=== PATIENT | male | born 1960 | race Hispanic/Latino ===

== ENCOUNTER 2019-04-19 14:00 | Inpatient (IN) | payer MEDICARE ==
[~2019-04-19] VITALS: Ht 162.6 cm; Wt 79.0 kg
[2019-04-19 16:33] LABS: BASOPHILS % (AUTO) 0.4 % (0.0-5.0); EOSINOPHILS % (AUTO) 1.6 % (0.0-8.0); HEMATOCRIT 39.7 % (42-54); LYMPHOCYTES % (AUTO) 14.3 % (21.0-51.0); MEAN CORPUSCULAR HEMOGLOBIN 29.7 pg (27.0-33.0); MEAN CORPUSCULAR HGB CONC 32.5 g/dL (32.0-36.0); MEAN CORPUSCULAR VOLUME 91.3 fL (79-99); MONOCYTES % (AUTO) 6.5 % (3.0-13.0); NEUTROPHILS % (AUTO) 77.2 % (40.0-77.0); PLATELET COUNT (AUTO) 227 K/uL (130-400); RED BLOOD CELL COUNT(AUTO) 4.34 MIL/uL (4.50-6.20); RED CELL DISTRIBUTION WIDTH 15.9 % (11.0-15.5); WHITE BLOOD COUNT (AUTO) 6.7 K/uL (4.8-10.8)
[2019-04-19 16:46] LABS: POTASSIUM 4.6 mmol/L (3.5-5.1)
[2019-04-19 16:53] LABS: CREATININE 8.8 mg/dL (0.5-1.5)
[2019-04-19 17:11] LABS: INR 1.14 (0.85-1.15); PROTHROMBIN TIME 11.9 SEC (9.6-11.6)
[2019-04-19 17:14] VITALS: BP 145/74
[2019-04-19] MEDS ORDERED: BUDE10.2 IH (18:19)
[2019-04-19] MEDS ORDERED: LISI-613 PO (18:19)
[2019-04-19] MEDS ORDERED: HYDR28OI10 TP (18:19)
[2019-04-19] MEDS ORDERED: DOCU-282 PO (18:19)
[2019-04-19] MEDS ORDERED: CARV12.511 PO (18:19)
[2019-04-19] MEDS ORDERED: OMEP20TA25 PO (18:19)
[2019-04-19] MEDS ORDERED: ZOLP10TA2 PO (18:19)
[2019-04-19] MEDS ORDERED: ATOR40TA69 PO (18:19)
[2019-04-19] MEDS ORDERED: IPRAHFA IH (18:19)
[2019-04-19] MEDS ORDERED: NPH,100V11 SQ (18:19)
[2019-04-19] MEDS ORDERED: BENZ-39 PO (18:19)
[2019-04-19] MEDS ORDERED: CALC667T6 PO (18:19)
[2019-04-19] MEDS ORDERED: ASPI-555 PO (18:19)
[2019-04-19] MEDS ORDERED: HYDR-4154 PO (18:19)
[2019-04-19] MEDS ORDERED: FURO20TA4 PO (18:19)
--- NOTE | 2019-04-19 18:49 | NUR ---
NOTIFIED OF ELEVATED PT LEVEL, NO NEW ORDERS RECEIVED.
[2019-04-20] VITALS (22 sets, daily range): BP systolic 120–148; BP diastolic 57–90
[2019-04-20] MEDS ORDERED: SODIUM CHLORIDE 0.9% 1000ML 1,000 ML IV ONE (07:49)
[2019-04-20] MEDS ORDERED: LIDOCAINE HCL MPF 1% 5ML VIAL ONE ×2 (07:52→07:56)
[2019-04-20] MEDS ORDERED: FENTANYL CITRATE PF 50 MCG/1 ML 2ML VIAL ONE (07:53)
[2019-04-20] MEDS ORDERED: ROCURONIUM 10MG/1ML SYR 10 MG/ML ML ONE (07:53)
[2019-04-20] MEDS ORDERED: PROPOFOL 10 MG/ML 20ML VIAL IV ONE (07:53)
[2019-04-20] MEDS ORDERED: MIDAZOLAM HCL 1 MG/ML 2ML VIAL ONE (07:56)
[2019-04-20] MEDS ORDERED: ROPIVACAINE 0.5% 5MG/ML 30ML IJ ONE (07:58)
[2019-04-20] MEDS: CEFAZOLIN SODIUM 1 GM VIAL IVP ONE ×2 (08:01→08:40)
[2019-04-20] MEDS ORDERED: PROPOFOL 1000 MG/100 ML 100 ML IV ONE (08:43)
[2019-04-20] MEDS ORDERED: EPHEDRINE SULFATE 50 MG/ML AMPULE ONE (08:59)
[2019-04-20] MEDS ORDERED: CEFAZOLIN SODIUM 1 GM VIAL ONE (09:08)
[2019-04-20] MEDS ORDERED: GLYCOPYRROLATE 1 MG/5 ML SYRINGE ONE (10:25)
[2019-04-20] MEDS ORDERED: NEOSTIGMINE 5MG/5ML SYR IV ONE (10:25)
[2019-04-20] MEDS ORDERED: SODIUM CHLORIDE 0.9% 1000ML 1,000 ML IV SCH (10:31)
[2019-04-20] MEDS ORDERED: CALCIUM CARBONATE 500 MG TABLET PO PRN (10:45)
[2019-04-20] MEDS ORDERED: DiphenhydrAMINE HCL 50 MG/ML VIAL IVP PRN (10:45)
[2019-04-20] MEDS ORDERED: TEMAZEPAM 15 MG CAPSULE PO PRN (10:45)
[2019-04-20] MEDS ORDERED: DIPHENHYDRAMINE HCL 25 MG CAPSULE PO PRN (10:45)
[2019-04-20] MEDS ORDERED: PROMETHAZINE HCL 25 MG/ML 1ML AMPULE IM PRN (10:45)
[2019-04-20] MEDS ORDERED: FERROUS FUMARATE 324 MG TABLET PO PRN (10:45)
[2019-04-20] MEDS ORDERED: HYDROCODONE/ACETAMINOPHEN 5/325 MG TAB PO PRN (10:45)
--- NOTE | 2019-04-20 10:48 | NUR ---
DIALYSIS GRAFT TO LEFT ARM, LEFT ARM PROTECTED. Addendum: 04/20/19 at 1234 by XOCHITL HAMMER RN RN Amended: Links added.
[2019-04-20] MEDS: INSULIN HUMULIN R 100 UNIT/ML 3ML SQ SCH ×3 (11:30→21:00)
--- NOTE | 2019-04-20 11:48 | NUR ---
JEREMIAH RIVERA INFORMED TO MAKE DETENTION SERGEANT AWARE OF PT'S CURRENT RM NUMBER TO FOLLOW UP WITH CHECKING OF THE DIFIBRILLATOR. Addendum: 04/20/19 at 1235 by XOCHITL HAMMER RN RN Amended: Links added.
[2019-04-20] MEDS: PSYLLIUM SEED 1 EACH PACKET PO SCH (12:00)
[2019-04-20] MEDS ORDERED: DOCUSATE SODIUM 100 MG CAP PO PRN (13:00)
[2019-04-20] MEDS ORDERED: CEFAZOLIN SODIUM 1 GM VIAL IVP SCH (13:00)
[2019-04-20] MEDS ORDERED: ZOLPIDEM TARTRATE 5 MG TAB PO PRN (13:15)
[2019-04-20] MEDS: BENZONATATE 100 MG CAPSULE PO SCH ×2 (14:38→21:45)
[2019-04-20] MEDS: CALCIUM ACETATE 667 MG CAPSULE PO SCH (16:40)
[2019-04-20] MEDS ORDERED: IPRATROPIUM 0.5 MG/2.5 ML INH IH SCH (18:00)
[2019-04-20] MEDS ORDERED: ALBUTEROL SULFATE 0.083% 2.5 MG/3 ML INH IH SCH (18:00)
[2019-04-20] MEDS: IPRATROPIUM/ALBUTEROL SULFATE 3 ML SOLUTION IH SCH (19:25)
[2019-04-20] MEDS: BUDESONIDE 0.5 MG/2 ML INH IH SCH (19:38)
[2019-04-20] MEDS: INSULIN NPH 100 UNIT/ML 3ML SQ SCH (21:00)
[2019-04-20] MEDS: CARVEDILOL 12.5 MG TABLET PO SCH (21:45)
[2019-04-20] MEDS: ATORVASTATIN CALCIUM 40 MG TABLET PO SCH (21:45)
[2019-04-20] MEDS: HYDROCORTISONE 1% 28.35 GM CREAM TP SCH (21:46)
[2019-04-20] MEDS: HYDROCODONE/ACETAMINOPHEN 5/325 MG TAB PO PRN (21:46)
[2019-04-20] MEDS: CEFAZOLIN SODIUM 1 GM VIAL IVP SCH (21:51)
--- NOTE | 2019-04-20 23:23 | NUR ---
MAKI GUARDADO PATIENT REPORTS HAVING SEVERE PAIN TO SURGICAL SITE, STATES PAIN IS 9/10. PATIENT RECEIVED 2 TABS OF NORCO 5/[address] AT [address] ARTHUR WAS NOTIFIED AND ORDERED FOR PATIENT TO BE STARTED ON A BUTCHERETTE PUMP, MORPHINE PROTOCOL. Addendum: 04/21/19 at 0048 by STEFANO BARNHART RN RN [id number] DR. ARTHUR WAS NOTIFIED THAT MORPHINE BUTCHERETTE PUMP WAS NOT AVAILABLE. ORDERED FOR PATIENT TO BE STARTED ON HYDROMORPHONE BUTCHERETTE PUMP PER PROTOCOL.
[2019-04-21] VITALS: BP 109/71
[2019-04-21] MEDS ORDERED: HYDROMORPHONE PCA 10 MG/50 ML 50 ML IV PRN
[2019-04-21] MEDS: IPRATROPIUM/ALBUTEROL SULFATE 3 ML SOLUTION IH SCH ×5 (00:10→23:02)
[2019-04-21 04:00] VITALS: BP 114/70
[2019-04-21] MEDS: BUDESONIDE 0.5 MG/2 ML INH IH SCH ×2 (05:00→18:53)
[2019-04-21 05:09] LABS: HEMATOCRIT 35.2 % (42-54); MEAN CORPUSCULAR HGB CONC 33.1 g/dL (32.0-36.0); MEAN CORPUSCULAR VOLUME 90.6 fL (79-99); PLATELET COUNT (AUTO) 179 K/uL (130-400); RED BLOOD CELL COUNT(AUTO) 3.88 MIL/uL (4.50-6.20); RED CELL DISTRIBUTION WIDTH 16.2 % (11.0-15.5)
[2019-04-21 05:32] LABS: POTASSIUM 4.3 mmol/L (3.5-5.1)
[2019-04-21] MEDS: INSULIN HUMULIN R 100 UNIT/ML 3ML SQ SCH ×4 (07:30→21:00)
--- NOTE | 2019-04-21 07:30 | NUR ---
SHY SCREEN PRINTER AWARE THAT VICE PRESIDENT TAX PUMP HAS NOT BEEN WORKING PROPERLY ACCORDING TO THE VICE PRESIDENT TAX PUMP , PATIENT HAS NOT RECEIVED ANY MEDICATION WHAT SO EVER. PATIENT DENIES ANY PAIN AND STATES VICE PRESIDENT TAX PUMP HAS RELIEVED HIS PAIN'. DR Komal ARTHUR AWARE WELL
[2019-04-21 07:46] VITALS: BP 126/76
[2019-04-21] MEDS: CALCIUM ACETATE 667 MG CAPSULE PO SCH ×2 (08:00→12:00)
--- NOTE | 2019-04-21 08:30 | NUR ---
PER DR. ARTHUR LEAVE PRICING ACTUARY HOW IT IS, IF PATIENT STARTS COMPLAINING OF PAIN THEN REPLACE PRICING ACTUARY PUMP
[2019-04-21] MEDS: INSULIN NPH 100 UNIT/ML 3ML SQ SCH ×2 (09:00→21:00)
[2019-04-21] MEDS: LISINOPRIL 20 MG TABLET PO SCH ×2 (09:00→09:33)
[2019-04-21] MEDS: CARVEDILOL 12.5 MG TABLET PO SCH ×3 (09:00→22:28)
[2019-04-21] MEDS: PANTOPRAZOLE SODIUM 40 MG TABLET.DR PO SCH (09:32)
[2019-04-21] MEDS: BENZONATATE 100 MG CAPSULE PO SCH ×3 (09:32→22:28)
[2019-04-21] MEDS: ASPIRIN 81 MG EC TAB PO SCH (09:32)
[2019-04-21] MEDS: FAMOTIDINE 20MG TAB 20 MG TAB PO SCH (09:33)
[2019-04-21] MEDS: CEFAZOLIN SODIUM 1 GM VIAL IVP SCH (09:34)
[2019-04-21] MEDS: ENOXAPARIN SODIUM 40 MG/0.4 ML SYRINGE SQ SCH (09:36)
[2019-04-21] MEDS: POLYETHYLENE GLYCOL 3350 17 GM POWD.PACK PO SCH (09:38)
--- NOTE | 2019-04-21 11:00 | NUR ---
INITIAL AND REFERRAL MET W PT AT BEDSIDE- S/P JOHNNY; PT LIVES IN [facility] AND GOES TO HD MWF AT [facility] IN [place]- LIVES W A FRIEND, USES MEDICAL TRANSPORT SERVICE FOR HD TRANSPORT AND HAS ANOTHER FRIEND THAN CAN HELP AT OTHER TIMES. WANTED TO HAVE HH AT HOME- EXPLAINED THE RISK/BENEFIST OF SNF VS HOME VS IPRU AND PT DECIDED ON IRU. ARGELIA SHEETS AND JULIA CONTACTED. PT IS CONDITIONALLY ACEPTED EVEN BEFORE EVAL PT WILL GO BY EMS TRANSPORT. MOT PENDING COMPLETION Addendum: 04/21/19 at 2148 by TITI GOMEZ RN CM Amended: Links added.
[2019-04-21 11:37] VITALS: BP 144/74
[2019-04-21] MEDS: PSYLLIUM SEED 1 EACH PACKET PO SCH (12:00)
--- NOTE | 2019-04-21 12:30 | NUR ---
PATIENT STATES HE DOES NOT WANT MEDICATIONS AT THIS TIME SINCE HE STILL NAUSEOUS NO CHEST PAIN, NO SOB WILL CONTINUE TO MONITOR
[2019-04-21 16:31] VITALS: BP 112/76
[2019-04-21 20:00] VITALS: BP 120/81
[2019-04-21] MEDS: HYDROCORTISONE 1% 28.35 GM CREAM TP SCH (22:27)
[2019-04-21] MEDS: ATORVASTATIN CALCIUM 40 MG TABLET PO SCH (22:28)
[2019-04-22] VITALS (7 sets, daily range): BP systolic 100–138; BP diastolic 58–84
[2019-04-22] MEDS: HYDROCODONE/ACETAMINOPHEN 5/325 MG TAB PO PRN (00:18)
[2019-04-22 04:38] LABS: HEMATOCRIT 34.6 % (42-54); MEAN CORPUSCULAR HGB CONC 33.1 g/dL (32.0-36.0); MEAN CORPUSCULAR VOLUME 90.5 fL (79-99); NUCLEATED RED BLOOD CELLS 0.1 % (0.0-0.19); PLATELET COUNT (AUTO) 178 K/uL (130-400); RED BLOOD CELL COUNT(AUTO) 3.83 MIL/uL (4.50-6.20)
[2019-04-22 05:05] LABS: PHOSPHORUS 6.9 mg/dL (2.5-4.9); POTASSIUM 4.8 mmol/L (3.5-5.1)
[2019-04-22] MEDS: IPRATROPIUM/ALBUTEROL SULFATE 3 ML SOLUTION IH SCH ×4 (06:04→23:01)
[2019-04-22] MEDS: BUDESONIDE 0.5 MG/2 ML INH IH SCH ×2 (06:11→18:46)
[2019-04-22] MEDS: INSULIN HUMULIN R 100 UNIT/ML 3ML SQ SCH ×4 (06:43→20:19)
[2019-04-22 08:12] LABS: HEPATITIS Bs ANTIGEN SCREEN P Negative (Negative)
[2019-04-22] MEDS: INSULIN NPH 100 UNIT/ML 3ML SQ SCH ×2 (09:00→20:22)
[2019-04-22] MEDS: CARVEDILOL 12.5 MG TABLET PO SCH ×2 (09:00→20:19)
[2019-04-22] MEDS: HYDROCORTISONE 1% 28.35 GM CREAM TP SCH ×2 (09:00→20:22)
[2019-04-22] MEDS: LISINOPRIL 20 MG TABLET PO SCH (09:00)
--- NOTE | 2019-04-22 09:00 | NUR ---
ROUNDS/DR.COBOS BARLOW HERE TO SEE PT, REMOVED DRESSING, INCISION CLEAN AND DRY, LA NENA INTACT, NO REDNESS OR DRAINAGE NOTED, CLEANSED WITH BETADINE AND COVERED WITH XEROFORM DRESSING, GAUZE PADS, KURLIX AND GARY BANDAGES, TOLERATED PROCEDURE WELL.
--- NOTE | 2019-04-22 10:00 | NUR ---
CM note received call from Grecia at [facility], and she states that pt is accepted, but not able accept until tomorow. updated primary Nurse Dior.
[2019-04-22] MEDS: ENOXAPARIN SODIUM 40 MG/0.4 ML SYRINGE SQ SCH (10:23)
[2019-04-22] MEDS: ASPIRIN 81 MG EC TAB PO SCH (10:23)
[2019-04-22] MEDS: CALCIUM ACETATE 667 MG CAPSULE PO SCH ×3 (10:24→16:49)
[2019-04-22] MEDS: PANTOPRAZOLE SODIUM 40 MG TABLET.DR PO SCH (10:24)
[2019-04-22] MEDS: FAMOTIDINE 20MG TAB 20 MG TAB PO SCH (10:24)
[2019-04-22] MEDS: POLYETHYLENE GLYCOL 3350 17 GM POWD.PACK PO SCH (10:24)
[2019-04-22] MEDS: BENZONATATE 100 MG CAPSULE PO SCH ×3 (10:24→20:19)
--- NOTE | 2019-04-22 10:30 | NUR ---
MEDICATION NONADMINISTRATION DID NOT ADMINISTER SCHEDULED BLOOD PRESSURE MEDICATIONS (LISINOPRIL, COREG) PATIENT IS PENDING TO RECEIVE HEMODIALYSIS TREATMENT TODAY. PATIENT IS AWARE AND IN AGREEMENT OF HOLDING BLOOD PRESSURE MEDICATIONS.
[2019-04-22] MEDS ORDERED: BISACODYL 5 MG TABLET.DR PO PRN (10:45)
[2019-04-22] MEDS: PSYLLIUM SEED 1 EACH PACKET PO SCH (12:44)
[2019-04-22] MEDS: ATORVASTATIN CALCIUM 40 MG TABLET PO SCH (20:19)
[2019-04-23 03:26] VITALS: BP 130/75
[2019-04-23 05:06] LABS: HEMATOCRIT 36.1 % (42-54); MEAN CORPUSCULAR HEMOGLOBIN 30.3 pg (27.0-33.0); MEAN CORPUSCULAR HGB CONC 33.2 g/dL (32.0-36.0); MEAN CORPUSCULAR VOLUME 91.3 fL (79-99); NUCLEATED RED BLOOD CELLS 0.1 % (0.0-0.19); PLATELET COUNT (AUTO) 159 K/uL (130-400); RED BLOOD CELL COUNT(AUTO) 3.95 MIL/uL (4.50-6.20); WHITE BLOOD COUNT (AUTO) 6.2 K/uL (4.8-10.8)
[2019-04-23 05:15] LABS: CREATININE 5.8 mg/dL (0.5-1.5); POTASSIUM 4.2 mmol/L (3.5-5.1)
[2019-04-23] MEDS: INSULIN HUMULIN R 100 UNIT/ML 3ML SQ SCH ×2 (06:16→11:30)
[2019-04-23] MEDS: BUDESONIDE 0.5 MG/2 ML INH IH SCH (06:36)
[2019-04-23] MEDS: IPRATROPIUM/ALBUTEROL SULFATE 3 ML SOLUTION IH SCH ×2 (06:36→11:18)
[2019-04-23 07:53] VITALS: BP 127/68
[2019-04-23] MEDS: INSULIN NPH 100 UNIT/ML 3ML SQ SCH (09:00)
[2019-04-23] MEDS: HYDROCORTISONE 1% 28.35 GM CREAM TP SCH (09:00)
[2019-04-23] MEDS ORDERED: BISACODYL 10 MG SUPP.RECT RC PRN (10:45)
[2019-04-23] MEDS: POLYETHYLENE GLYCOL 3350 17 GM POWD.PACK PO SCH (11:05)
[2019-04-23] MEDS: FAMOTIDINE 20MG TAB 20 MG TAB PO SCH (11:05)
[2019-04-23] MEDS: LISINOPRIL 20 MG TABLET PO SCH (11:06)
[2019-04-23] MEDS: CARVEDILOL 12.5 MG TABLET PO SCH (11:06)
[2019-04-23] MEDS: ASPIRIN 81 MG EC TAB PO SCH (11:06)
[2019-04-23] MEDS: PANTOPRAZOLE SODIUM 40 MG TABLET.DR PO SCH (11:06)
[2019-04-23] MEDS: CALCIUM ACETATE 667 MG CAPSULE PO SCH ×2 (11:07→12:00)
[2019-04-23] MEDS: BENZONATATE 100 MG CAPSULE PO SCH (11:10)
[2019-04-23] MEDS: ENOXAPARIN SODIUM 40 MG/0.4 ML SYRINGE SQ SCH (11:10)
[2019-04-23] MEDS: HYDROCODONE/ACETAMINOPHEN 5/325 MG TAB PO PRN (11:11)
[2019-04-23 11:39] VITALS: BP 121/79
[2019-04-23] MEDS: PSYLLIUM SEED 1 EACH PACKET PO SCH (12:00)
--- NOTE | 2019-04-23 12:05 | NUR ---
REPORT GIVEN [facility] AWARE NURSE REPORT GIVEN TO PATRICK OF [facility] [phone]. CALLED [facility] [phone], SPOKE TO RODNEY AND INFORMED HER THAT PATIENT IS READY TO BE PICKED UP TO BE TRANSFERRED TO [facility].
== END 2019-04-23 13:58 | DRG 40 ==
LOC: EDSTATUS 14:00 → DAHIP 04-20 06:59 → OBSVTOIN 04-20 06:59 → 4AH 04-20 11:10
PROVIDERS: ADMIT Orthopaedic Surgery; ATTEND Orthopaedic Surgery
PROC: 5A1D70Z Performance of Urinary Filtration, Intermittent, Less than 6 Hours Per Day (ICD-10-PCS; 2019-04-20)
PROC: 0Y6H0Z1 Detachment at Right Lower Leg, High, Open Approach (ICD-10-PCS; principal; 2019-04-20 08:25)
PROC: 5A1D70Z Performance of Urinary Filtration, Intermittent, Less than 6 Hours Per Day (ICD-10-PCS; 2019-04-22)
DX: E11.610 Type 2 diabetes mellitus with diabetic neuropathic arthropathy (principal); N18.6 End stage renal disease; I12.0 Hypertensive chronic kidney disease with stage 5 chronic kidney disease or end stage renal disease; E11.22 Type 2 diabetes mellitus with diabetic chronic kidney disease; E11.51 Type 2 diabetes mellitus with diabetic peripheral angiopathy without gangrene; G89.29 Other chronic pain; R26.9 Unspecified abnormalities of gait and mobility; I25.10 Atherosclerotic heart disease of native coronary artery without angina pectoris; J44.9 Chronic obstructive pulmonary disease, unspecified; Z99.2 Dependence on renal dialysis; Z95.1 Presence of aortocoronary bypass graft; Z86.73 Personal history of transient ischemic attack (TIA), and cerebral infarction without residual deficits; Z82.0 Family history of epilepsy and other diseases of the nervous system; Z80.9 Family history of malignant neoplasm, unspecified; Z82.49 Family history of ischemic heart disease and other diseases of the circulatory system
CPT/HCPCS: 36415; 80048; 82948; 84100; 85025; 85027; 85610; 86704; 86706; 87340; 87520; 87641; 88304; 88307; 88311; 90935; 93005; 94640; 94664; 97039; G0378; J0690; J1170; J1650; J1815; J2250; J2550; J2704; J2710; J2795; J3010; J3490; J7030

== ENCOUNTER → 2019-06-14 | Outpatient (CLI) | payer MEDICARE ==
[~2019-06-14] MED LIST: ASPI-555 PO; ATOR40TA69 PO; BENZ-39 PO; BUDE10.2 IH; CALC667T6 PO; CARV12.511 PO; DOCU-282 PO; HYDR28OI10 TP; IPRAHFA IH; LIDOCAINE HCL 2% JELLY 5 ML TP ONE; LISI-613 PO; NPH,100V11 SQ; OMEP20TA25 PO; ZOLP10TA2 PO
[2019-06-14 15:35] VITALS: BP 167/79
== END | disposition home or self-care (01) ==
LOC: WHH 13:00
PROVIDERS: ATTEND Family Medicine
DX: T87.81 Dehiscence of amputation stump (principal); E11.51 Type 2 diabetes mellitus with diabetic peripheral angiopathy without gangrene; E11.22 Type 2 diabetes mellitus with diabetic chronic kidney disease; I12.0 Hypertensive chronic kidney disease with stage 5 chronic kidney disease or end stage renal disease; N18.6 End stage renal disease; E11.610 Type 2 diabetes mellitus with diabetic neuropathic arthropathy; I25.10 Atherosclerotic heart disease of native coronary artery without angina pectoris; I25.2 Old myocardial infarction; J44.9 Chronic obstructive pulmonary disease, unspecified; G89.29 Other chronic pain; Z99.2 Dependence on renal dialysis; Z79.4 Long term (current) use of insulin; Z79.82 Long term (current) use of aspirin; Z95.5 Presence of coronary angioplasty implant and graft; Z89.422 Acquired absence of other left toe(s); Z86.718 Personal history of other venous thrombosis and embolism; Y83.5 Amputation of limb(s) as the cause of abnormal reaction of the patient, or of later complication, without mention of misadventure at the time of the procedure
CPT/HCPCS: 11042; 36415; 84134; 85651; 86140; 87070; A6213

== ENCOUNTER → 2019-06-21 | Outpatient (CLI) | payer MEDICARE ==
[~2019-06-21] MED LIST changes: -LIDOCAINE HCL 2% JELLY 5 ML TP ONE
[2019-06-21 14:36] VITALS: BP 153/94
== END | disposition home or self-care (01) ==
LOC: WHH 13:15
PROVIDERS: ATTEND Family Medicine
DX: T87.81 Dehiscence of amputation stump (principal); E11.51 Type 2 diabetes mellitus with diabetic peripheral angiopathy without gangrene; E11.22 Type 2 diabetes mellitus with diabetic chronic kidney disease; I12.0 Hypertensive chronic kidney disease with stage 5 chronic kidney disease or end stage renal disease; N18.6 End stage renal disease; E11.610 Type 2 diabetes mellitus with diabetic neuropathic arthropathy; I25.10 Atherosclerotic heart disease of native coronary artery without angina pectoris; I25.2 Old myocardial infarction; J44.9 Chronic obstructive pulmonary disease, unspecified; G89.29 Other chronic pain; Z99.2 Dependence on renal dialysis; Z79.4 Long term (current) use of insulin; Z79.82 Long term (current) use of aspirin; Z95.5 Presence of coronary angioplasty implant and graft; Z89.422 Acquired absence of other left toe(s); Z86.718 Personal history of other venous thrombosis and embolism; Z95.810 Presence of automatic (implantable) cardiac defibrillator; Y83.5 Amputation of limb(s) as the cause of abnormal reaction of the patient, or of later complication, without mention of misadventure at the time of the procedure
CPT/HCPCS: 11042

== ENCOUNTER → 2019-07-08 | Outpatient (CLI) | payer MEDICARE ==
[~2019-07-08] MED LIST changes: +HONEY 1 APPL/ML TUBE TP ONE; +LIDOCAINE/PRILOCAINE CREAM 5GM TUBE TP ONE
[2019-07-08 15:11] VITALS: BP 142/75
== END | disposition home or self-care (01) ==
LOC: WHH 13:45
PROVIDERS: ATTEND Family Medicine
DX: T87.81 Dehiscence of amputation stump (principal); E11.51 Type 2 diabetes mellitus with diabetic peripheral angiopathy without gangrene; E11.22 Type 2 diabetes mellitus with diabetic chronic kidney disease; I12.0 Hypertensive chronic kidney disease with stage 5 chronic kidney disease or end stage renal disease; N18.6 End stage renal disease; E11.610 Type 2 diabetes mellitus with diabetic neuropathic arthropathy; I25.10 Atherosclerotic heart disease of native coronary artery without angina pectoris; I25.2 Old myocardial infarction; J44.9 Chronic obstructive pulmonary disease, unspecified; G89.29 Other chronic pain; Z99.2 Dependence on renal dialysis; Z79.4 Long term (current) use of insulin; Z79.82 Long term (current) use of aspirin; Z95.5 Presence of coronary angioplasty implant and graft; Z89.422 Acquired absence of other left toe(s); Z86.718 Personal history of other venous thrombosis and embolism; Z95.810 Presence of automatic (implantable) cardiac defibrillator; Y83.5 Amputation of limb(s) as the cause of abnormal reaction of the patient, or of later complication, without mention of misadventure at the time of the procedure
CPT/HCPCS: 11042; A4450; J3490

== ENCOUNTER → 2019-07-12 | Outpatient (CLI) | payer MEDICARE ==
[~2019-07-12] MED LIST changes: -HONEY 1 APPL/ML TUBE TP ONE; -LIDOCAINE/PRILOCAINE CREAM 5GM TUBE TP ONE
[2019-07-12 15:39] VITALS: BP 166/89
== END | disposition home or self-care (01) ==
LOC: WHH 13:30
PROVIDERS: ATTEND Family Medicine
DX: T87.89 Other complications of amputation stump (principal); E11.51 Type 2 diabetes mellitus with diabetic peripheral angiopathy without gangrene; E11.22 Type 2 diabetes mellitus with diabetic chronic kidney disease; I12.0 Hypertensive chronic kidney disease with stage 5 chronic kidney disease or end stage renal disease; N18.6 End stage renal disease; E11.610 Type 2 diabetes mellitus with diabetic neuropathic arthropathy; I25.10 Atherosclerotic heart disease of native coronary artery without angina pectoris; I25.2 Old myocardial infarction; J44.9 Chronic obstructive pulmonary disease, unspecified; G89.29 Other chronic pain; Z99.2 Dependence on renal dialysis; Z79.4 Long term (current) use of insulin; Z79.82 Long term (current) use of aspirin; Z95.5 Presence of coronary angioplasty implant and graft; Z89.422 Acquired absence of other left toe(s); Z86.718 Personal history of other venous thrombosis and embolism; Z95.810 Presence of automatic (implantable) cardiac defibrillator; Y83.5 Amputation of limb(s) as the cause of abnormal reaction of the patient, or of later complication, without mention of misadventure at the time of the procedure
CPT/HCPCS: 11042

== ENCOUNTER → 2019-07-19 | Outpatient (CLI) | payer MEDICARE ==
[~2019-07-19] MED LIST changes: +LIDOCAINE/PRILOCAINE CREAM 5GM TUBE TP ONE
[2019-07-19 15:08] VITALS: BP 160/93
== END | disposition home or self-care (01) ==
LOC: WHH 13:00
PROVIDERS: ATTEND Family Medicine
DX: T87.81 Dehiscence of amputation stump (principal); E11.621 Type 2 diabetes mellitus with foot ulcer; L97.522 Non-pressure chronic ulcer of other part of left foot with fat layer exposed; E11.51 Type 2 diabetes mellitus with diabetic peripheral angiopathy without gangrene; E11.40 Type 2 diabetes mellitus with diabetic neuropathy, unspecified; E11.22 Type 2 diabetes mellitus with diabetic chronic kidney disease; I12.0 Hypertensive chronic kidney disease with stage 5 chronic kidney disease or end stage renal disease; N18.6 End stage renal disease; E11.610 Type 2 diabetes mellitus with diabetic neuropathic arthropathy; I25.10 Atherosclerotic heart disease of native coronary artery without angina pectoris; I25.2 Old myocardial infarction; J44.9 Chronic obstructive pulmonary disease, unspecified; G89.29 Other chronic pain; Z99.2 Dependence on renal dialysis; Z79.4 Long term (current) use of insulin; Z79.82 Long term (current) use of aspirin; Z95.5 Presence of coronary angioplasty implant and graft; Z89.422 Acquired absence of other left toe(s); Z86.718 Personal history of other venous thrombosis and embolism; Z95.810 Presence of automatic (implantable) cardiac defibrillator; Y83.5 Amputation of limb(s) as the cause of abnormal reaction of the patient, or of later complication, without mention of misadventure at the time of the procedure
CPT/HCPCS: 11042; A6209; J3490

== ENCOUNTER → 2019-08-02 | Outpatient (CLI) | payer MEDICARE ==
[~2019-08-02] MED LIST changes: -LIDOCAINE/PRILOCAINE CREAM 5GM TUBE TP ONE
[2019-08-02 15:54] VITALS: BP 140/70
== END | disposition home or self-care (01) ==
LOC: WHH 13:00
PROVIDERS: ATTEND Family Medicine
DX: T87.89 Other complications of amputation stump (principal); E11.22 Type 2 diabetes mellitus with diabetic chronic kidney disease; I12.0 Hypertensive chronic kidney disease with stage 5 chronic kidney disease or end stage renal disease; N18.6 End stage renal disease; E11.40 Type 2 diabetes mellitus with diabetic neuropathy, unspecified; E11.610 Type 2 diabetes mellitus with diabetic neuropathic arthropathy; E11.51 Type 2 diabetes mellitus with diabetic peripheral angiopathy without gangrene; I25.10 Atherosclerotic heart disease of native coronary artery without angina pectoris; K21.9 Gastro-esophageal reflux disease without esophagitis; I25.2 Old myocardial infarction; G89.29 Other chronic pain; J44.9 Chronic obstructive pulmonary disease, unspecified; Z99.2 Dependence on renal dialysis; Z79.4 Long term (current) use of insulin; Z79.82 Long term (current) use of aspirin; Z86.718 Personal history of other venous thrombosis and embolism; Z95.810 Presence of automatic (implantable) cardiac defibrillator; Z95.1 Presence of aortocoronary bypass graft; Z89.422 Acquired absence of other left toe(s); Y83.5 Amputation of limb(s) as the cause of abnormal reaction of the patient, or of later complication, without mention of misadventure at the time of the procedure
CPT/HCPCS: 11042; A6209

== ENCOUNTER → 2019-08-09 | Outpatient (CLI) | payer MEDICARE ==
[2019-08-09 15:08] VITALS: BP 128/56
== END | disposition home or self-care (01) ==
LOC: WHH 13:30
PROVIDERS: ATTEND Family Medicine
DX: T87.89 Other complications of amputation stump (principal); E11.22 Type 2 diabetes mellitus with diabetic chronic kidney disease; I12.0 Hypertensive chronic kidney disease with stage 5 chronic kidney disease or end stage renal disease; N18.6 End stage renal disease; E11.610 Type 2 diabetes mellitus with diabetic neuropathic arthropathy; E11.40 Type 2 diabetes mellitus with diabetic neuropathy, unspecified; E11.51 Type 2 diabetes mellitus with diabetic peripheral angiopathy without gangrene; I25.10 Atherosclerotic heart disease of native coronary artery without angina pectoris; I25.2 Old myocardial infarction; J44.9 Chronic obstructive pulmonary disease, unspecified; K21.9 Gastro-esophageal reflux disease without esophagitis; G89.29 Other chronic pain; Z99.2 Dependence on renal dialysis; Z79.4 Long term (current) use of insulin; Z79.82 Long term (current) use of aspirin; Z95.1 Presence of aortocoronary bypass graft; Z95.810 Presence of automatic (implantable) cardiac defibrillator; Z89.422 Acquired absence of other left toe(s); Z86.73 Personal history of transient ischemic attack (TIA), and cerebral infarction without residual deficits; Y83.5 Amputation of limb(s) as the cause of abnormal reaction of the patient, or of later complication, without mention of misadventure at the time of the procedure
CPT/HCPCS: 11042; A6213

== ENCOUNTER → 2019-08-16 | Outpatient (CLI) | payer MEDICARE ==
[2019-08-16 15:28] VITALS: BP 161/94
== END | disposition home or self-care (01) ==
LOC: WHH 13:30
PROVIDERS: ATTEND Family Medicine
DX: T87.89 Other complications of amputation stump (principal); E11.22 Type 2 diabetes mellitus with diabetic chronic kidney disease; I12.0 Hypertensive chronic kidney disease with stage 5 chronic kidney disease or end stage renal disease; N18.6 End stage renal disease; E11.610 Type 2 diabetes mellitus with diabetic neuropathic arthropathy; E11.40 Type 2 diabetes mellitus with diabetic neuropathy, unspecified; E11.51 Type 2 diabetes mellitus with diabetic peripheral angiopathy without gangrene; I25.10 Atherosclerotic heart disease of native coronary artery without angina pectoris; I25.2 Old myocardial infarction; K21.9 Gastro-esophageal reflux disease without esophagitis; G89.4 Chronic pain syndrome; J44.9 Chronic obstructive pulmonary disease, unspecified; Z99.2 Dependence on renal dialysis; Z79.4 Long term (current) use of insulin; Z98.2 Presence of cerebrospinal fluid drainage device; Z95.1 Presence of aortocoronary bypass graft; Z95.810 Presence of automatic (implantable) cardiac defibrillator; Z86.73 Personal history of transient ischemic attack (TIA), and cerebral infarction without residual deficits; Z86.718 Personal history of other venous thrombosis and embolism; Z89.422 Acquired absence of other left toe(s); Y83.5 Amputation of limb(s) as the cause of abnormal reaction of the patient, or of later complication, without mention of misadventure at the time of the procedure
CPT/HCPCS: A6210; G0463

== ENCOUNTER 2019-08-23 13:00 | Outpatient (CLI) | payer MEDICARE ==
[2019-08-23 15:36] VITALS: BP 148/69
== END 2019-08-23 16:20 | disposition home or self-care (01) ==
LOC: WHH 13:00
PROVIDERS: ATTEND Family Medicine
DX: T87.89 Other complications of amputation stump (principal); E11.22 Type 2 diabetes mellitus with diabetic chronic kidney disease; I12.0 Hypertensive chronic kidney disease with stage 5 chronic kidney disease or end stage renal disease; N18.6 End stage renal disease; E11.610 Type 2 diabetes mellitus with diabetic neuropathic arthropathy; E11.40 Type 2 diabetes mellitus with diabetic neuropathy, unspecified; E11.51 Type 2 diabetes mellitus with diabetic peripheral angiopathy without gangrene; I25.10 Atherosclerotic heart disease of native coronary artery without angina pectoris; I25.2 Old myocardial infarction; J44.9 Chronic obstructive pulmonary disease, unspecified; G89.4 Chronic pain syndrome; K21.9 Gastro-esophageal reflux disease without esophagitis; Z95.1 Presence of aortocoronary bypass graft; Z95.810 Presence of automatic (implantable) cardiac defibrillator; Z98.2 Presence of cerebrospinal fluid drainage device; Z99.2 Dependence on renal dialysis; Z79.4 Long term (current) use of insulin; Z79.82 Long term (current) use of aspirin; Z89.422 Acquired absence of other left toe(s); Z86.718 Personal history of other venous thrombosis and embolism; Z86.73 Personal history of transient ischemic attack (TIA), and cerebral infarction without residual deficits; Z95.5 Presence of coronary angioplasty implant and graft; Y83.5 Amputation of limb(s) as the cause of abnormal reaction of the patient, or of later complication, without mention of misadventure at the time of the procedure
CPT/HCPCS: G0463

== ENCOUNTER → 2019-11-04 | Outpatient (CLI) | payer MEDICARE ==
[~2019-11-04] MED LIST changes: +HYDR25SU11 PR; +LID5O TP; +MESA1S PR; +ZINC56.7 TP
[2019-11-04 12:56] VITALS: BP 136/82
== END | disposition home or self-care (01) ==
LOC: WHH 10:50
PROVIDERS: ATTEND Family Medicine
DX: E11.621 Type 2 diabetes mellitus with foot ulcer (principal); I70.245 Atherosclerosis of native arteries of left leg with ulceration of other part of foot; L97.521 Non-pressure chronic ulcer of other part of left foot limited to breakdown of skin; E11.622 Type 2 diabetes mellitus with other skin ulcer; I70.241 Atherosclerosis of native arteries of left leg with ulceration of thigh; L97.221 Non-pressure chronic ulcer of left calf limited to breakdown of skin; L98.491 Non-pressure chronic ulcer of skin of other sites limited to breakdown of skin; E11.22 Type 2 diabetes mellitus with diabetic chronic kidney disease; I12.0 Hypertensive chronic kidney disease with stage 5 chronic kidney disease or end stage renal disease; N18.6 End stage renal disease; E11.51 Type 2 diabetes mellitus with diabetic peripheral angiopathy without gangrene; I25.10 Atherosclerotic heart disease of native coronary artery without angina pectoris; E78.5 Hyperlipidemia, unspecified; E66.01 Morbid (severe) obesity due to excess calories; E78.00 Pure hypercholesterolemia, unspecified; K62.89 Other specified diseases of anus and rectum; K82.8 Other specified diseases of gallbladder; Z95.1 Presence of aortocoronary bypass graft; Z89.511 Acquired absence of right leg below knee; Z89.611 Acquired absence of right leg above knee; Z99.2 Dependence on renal dialysis
CPT/HCPCS: G0463

== ENCOUNTER 2019-11-17 22:01 | Inpatient (IN) | payer MEDICARE ==
[~2019-11-17] VITALS: Ht 165.1 cm; Wt 65.4 kg
[~2019-11-17 22:01] MED LIST changes: -ASPI-555 PO; +ASPI-556 PO
[2019-11-17 22:41] LABS: BASOPHILS % (AUTO) 0.2 % (0.0-5.0); EOSINOPHILS % (AUTO) 0.2 % (0.0-8.0); HEMATOCRIT 38.4 % (42-54); LYMPHOCYTES % (AUTO) 5.1 % (21.0-51.0); MEAN CORPUSCULAR HEMOGLOBIN 29.6 pg (27.0-33.0); MEAN CORPUSCULAR HGB CONC 31.8 g/dL (32.0-36.0); MEAN CORPUSCULAR VOLUME 93.2 fL (79-99); MONOCYTES % (AUTO) 2.6 % (3.0-13.0); NEUTROPHILS % (AUTO) 91.4 % (40.0-77.0); NUCLEATED RED BLOOD CELLS 0.1 % (0.0-0.19); PLATELET COUNT (AUTO) 215 K/uL (130-400); RED BLOOD CELL COUNT(AUTO) 4.12 MIL/uL (4.50-6.20); RED CELL DISTRIBUTION WIDTH 17.2 % (11.0-15.5); WHITE BLOOD COUNT (AUTO) 13.9 K/uL (4.8-10.8)
[2019-11-17 22:58] LABS: ALBUMIN 2.2 g/dL (3.5-5.0); BILIRUBIN,TOTAL 1.9 mg/dL (0.2-1.0); POTASSIUM 3.8 mmol/L (3.5-5.1)
[2019-11-17 23:09] LABS: CREATININE 10.7 mg/dL (0.5-1.5)
[2019-11-17] MEDS ORDERED: ONDANSETRON HCL 4 MG/2 ML VIAL ONE (23:33)
[2019-11-17] MEDS ORDERED: MORPHINE SULFATE 4 MG/1ML SYG ONE (23:34)
[2019-11-18 03:18] LABS: INR 1.55 (0.85-1.15); PROTHROMBIN TIME 16.5 SEC (9.6-11.6)
[2019-11-18] MEDS ORDERED: HEPARIN 25000 UNITS/250 ML D5W 250 ML IV ONE (03:27)
[2019-11-18] MEDS ORDERED: DEXTROSE 50%-WATER 50 ML DISP.SYRIN IV ONE (07:49)
[2019-11-18] MEDS ORDERED: EPINEPHRINE 0.1 MG/ML 10 ML SYG IVP ONE (08:26)
[2019-11-18] MEDS ORDERED: SODIUM BICARB 8.4% 50ML SYRINGE IVP ONE (08:26)
[2019-11-18] MEDS ORDERED: LIDOCAINE HCL 5% OINT 36GM TUBE TP PRN (09:15)
--- NOTE | 2019-11-18 09:50 | NUR ---
PT LETHARGIC UNABLE TO GET HX Addendum: 11/18/19 at 1009 by REZA LAL RT Amended: Links added.
[2019-11-18 10:05] LABS: PROTHROMBIN TIME 47.3 SEC (9.6-11.6)
[2019-11-18 10:09] LABS: INR 4.65 (0.85-1.15)
[2019-11-18 10:10] LABS: PARTIAL THROMBOPLASTIN TIME > 120.0 SEC (26.3-35.5)
[2019-11-18] MEDS ORDERED: NITROGLYCERIN 0.4 MG SL TAB SL PRN (12:45)
[2019-11-18] MEDS ORDERED: 0.9% SODIUM CHLORIDE 1000 ML IV BAG IV PRN (12:45)
[2019-11-18] MEDS ORDERED: SODIUM CHLORIDE 0.9% 1000ML 1,000 ML IV PRN (12:45)
--- NOTE | 2019-11-18 13:25 | NUR ---
HOLD EVALUATION Pt ON DIALYSIS AT THIS TIME. PROCEDURE WILL TAKE ABOUT 2HOURS. HOLD EVALUATION. POLE PEELING MACHINE OPERATOR WILL CONTINUE TO FOLLOW Pt FOR SKILLED SPEECH THERAPY MONICA. POLE PEELING MACHINE OPERATOR COORDINATED WITH NURSE STAFFORD. Addendum: 11/18/[address]ANNA MAYFIELD Amended: Links added.
[2019-11-18 13:35] LABS: INR 1.42 (0.85-1.15); PARTIAL THROMBOPLASTIN TIME 39.9 SEC (26.3-35.5); PROTHROMBIN TIME 15.1 SEC (9.6-11.6)
[2019-11-18] MEDS: IPRATROPIUM 0.5 MG/2.5 ML INH IH SCH ×2 (13:48→19:09)
[2019-11-18 16:45] VITALS: BP 113/61
[2019-11-18] MEDS: CALCIUM ACETATE 667 MG CAPSULE PO SCH ×2 (17:28→21:21)
[2019-11-18] MEDS: BENZONATATE 100 MG CAPSULE PO SCH ×2 (17:29→21:21)
[2019-11-18] MEDS: WARFARIN SODIUM 5 MG TAB PO SCH (17:29)
[2019-11-18] MEDS: CARVEDILOL 12.5 MG TABLET PO SCH (20:23)
[2019-11-18] MEDS: HYDROCORTISONE 25 MG SUPPOSITORY PR SCH (20:24)
[2019-11-18 20:25] LABS: INR 1.48 (0.85-1.15); PARTIAL THROMBOPLASTIN TIME 60.5 SEC (26.3-35.5); PROTHROMBIN TIME 15.7 SEC (9.6-11.6)
[2019-11-18 20:54] VITALS: BP 115/61
[2019-11-18] MEDS: ZINC OXIDE OINT 60GM TUBE TP SCH (21:00)
[2019-11-18] MEDS: HYDROCORTISONE 1% 28.35 GM CREAM TP SCH (21:00)
[2019-11-18] MEDS: MESALAMINE 1000 MG SUPP PR SCH (21:00)
[2019-11-18] MEDS: ATORVASTATIN CALCIUM 40 MG TABLET PO SCH (21:21)
[2019-11-18] MEDS ORDERED: HEPARIN 25000 UNITS/250 ML D5W 250 ML IV PRN (22:00)
[2019-11-19] VITALS (7 sets, daily range): BP systolic 95–133; BP diastolic 53–64
[2019-11-19 02:13] LABS: HEMATOCRIT 38.4 % (42-54); MEAN CORPUSCULAR HEMOGLOBIN 29.8 pg (27.0-33.0); MEAN CORPUSCULAR HGB CONC 31.8 g/dL (32.0-36.0); MEAN CORPUSCULAR VOLUME 93.7 fL (79-99); NUCLEATED RED BLOOD CELLS 0.2 % (0.0-0.19); PLATELET COUNT (AUTO) 160 K/uL (130-400); RED CELL DISTRIBUTION WIDTH 17.3 % (11.0-15.5); WHITE BLOOD COUNT (AUTO) 17.4 K/uL (4.8-10.8)
[2019-11-19 02:26] LABS: INR 1.49 (0.85-1.15); PARTIAL THROMBOPLASTIN TIME 43.9 SEC (26.3-35.5); PROTHROMBIN TIME 15.8 SEC (9.6-11.6)
[2019-11-19 02:27] LABS: BAND NEUTROPHILS % (MANUAL) 17 % (0-2); LYMPHOCYTES % (MANUAL) 15 % (22-44); MAN.DIFF COMMENT-IMPRESSION MANUAL DIFFERENTIAL; MONOCYTES % (MANUAL) 3 % (2-9); PHOSPHORUS 8.2 mg/dL (2.5-4.9); PLATELET MORPHOLOGY COMMENT ADEQUATE; POTASSIUM 3.7 mmol/L (3.5-5.1); SEGMENTED NEUTROPHILS % 65 % (40-70)
[2019-11-19 02:34] LABS: CREATININE 8.6 mg/dL (0.5-1.5)
[2019-11-19] MEDS: IPRATROPIUM 0.5 MG/2.5 ML INH IH SCH ×4 (05:21→18:37)
[2019-11-19] MEDS: INSULIN R PO SS1 SQ SCH ×4 (07:30→21:00)
[2019-11-19 08:18] LABS: INR 1.52 (0.85-1.15); PARTIAL THROMBOPLASTIN TIME 61.1 SEC (26.3-35.5); PROTHROMBIN TIME 16.2 SEC (9.6-11.6)
[2019-11-19] MEDS: HYDROCORTISONE 1% 28.35 GM CREAM TP SCH ×2 (09:00→19:58)
[2019-11-19] MEDS: CARVEDILOL 12.5 MG TABLET PO SCH ×2 (09:00→19:43)
[2019-11-19] MEDS: LISINOPRIL 20 MG TABLET PO SCH (09:00)
[2019-11-19] MEDS: ZINC OXIDE OINT 60GM TUBE TP SCH ×2 (09:00→19:58)
[2019-11-19] MEDS: MESALAMINE 1000 MG SUPP PR SCH ×2 (10:06→19:45)
[2019-11-19] MEDS: PANTOPRAZOLE SODIUM 40 MG TABLET.DR PO SCH (10:06)
[2019-11-19] MEDS: ASPIRIN 81 MG EC TAB PO SCH (10:06)
[2019-11-19] MEDS: CALCIUM ACETATE 667 MG CAPSULE PO SCH ×3 (10:06→19:45)
[2019-11-19] MEDS: HYDROCORTISONE 25 MG SUPPOSITORY PR SCH ×2 (10:06→19:45)
[2019-11-19] MEDS: BENZONATATE 100 MG CAPSULE PO SCH ×3 (10:06→19:45)
--- NOTE | 2019-11-19 13:00 | NUR ---
DR. HALL HERE TO SEE PATIENT MD INFORMED OF ELEVATED WBC AND NO ANTIBIOTICS ORDERED AT THIS TIME. INFORMED OF LEFT LOWER EXTREMITY WOUNDS. ASKED MD IF OKAY TO RECEIVE HEPARIN IV PER PROTOCOL AND WARFARIN AT THE SAME AND DR. HALL REPLIED "THAT IS FINE". MD PLACED VERBAL ORDERS, READBACK ORDERS TO MD TO CLARIFY.
[2019-11-19] MEDS: ACETAMINOPHEN 325 MG TAB PO PRN ×2 (13:33→19:45)
[2019-11-19] MEDS ORDERED: VANCOMYCIN PROTOCOL PER PHARMACY IV SCH (14:00)
[2019-11-19] MEDS ORDERED: VANCOMYCIN 1GM+NS 250ML 250 ML IV SCH (15:00)
--- NOTE | 2019-11-19 15:00 | NUR ---
DR. HERNÁNDEZ HERE TO SEE PATIENT Addendum: 11/19/19 at 2019 by EMELY SAMUELS RN RN EVALUATED LLE NECROTIC WOUNDS. STATED HE WOULD PLACE ORDERS AND NO DRESSING CHANGES NEEDED.
--- NOTE | 2019-11-19 16:15 | NUR ---
DR. JAENT BEAN AWARE OF CONSULT SPOKE TO MD VIA TELEPHONE REGARDING CONSULT.
[2019-11-19] MEDS: WARFARIN SODIUM 5 MG TAB PO SCH (16:59)
[2019-11-19] MEDS: ATORVASTATIN CALCIUM 40 MG TABLET PO SCH (19:45)
[2019-11-19] MEDS ORDERED: PHARMACY COMMUNICATION MISC SCH (20:00)
[2019-11-20] MEDS: ACETAMINOPHEN 325 MG TAB PO PRN ×4 (02:01→23:31)
[2019-11-20 03:22] LABS: BASOPHILS % (AUTO) 0.3 % (0.0-5.0); EOSINOPHILS % (AUTO) 0.3 % (0.0-8.0); HEMATOCRIT 37.4 % (42-54); LYMPHOCYTES % (AUTO) 4.4 % (21.0-51.0); MEAN CORPUSCULAR HEMOGLOBIN 30.2 pg (27.0-33.0); MEAN CORPUSCULAR HGB CONC 32.6 g/dL (32.0-36.0); MEAN CORPUSCULAR VOLUME 92.6 fL (79-99); MONOCYTES % (AUTO) 3.6 % (3.0-13.0); NEUTROPHILS % (AUTO) 90.7 % (40.0-77.0); NUCLEATED RED BLOOD CELLS 0.2 % (0.0-0.19); PLATELET COUNT (AUTO) 156 K/uL (130-400); RED BLOOD CELL COUNT(AUTO) 4.04 MIL/uL (4.50-6.20); RED CELL DISTRIBUTION WIDTH 17.2 % (11.0-15.5); WHITE BLOOD COUNT (AUTO) 18.1 K/uL (4.8-10.8)
[2019-11-20 03:28] VITALS: BP 95/58
[2019-11-20 03:31] LABS: MAGNESIUM 2.2 mg/dL (1.80-2.40); PHOSPHORUS 8.6 mg/dL (2.5-4.9); POTASSIUM 4.1 mmol/L (3.5-5.1)
[2019-11-20 03:36] LABS: CREATININE 9.6 mg/dL (0.5-1.5)
[2019-11-20] MEDS: INSULIN R PO SS1 SQ SCH ×4 (05:55→20:35)
[2019-11-20] MEDS: IPRATROPIUM 0.5 MG/2.5 ML INH IH SCH ×4 (06:08→18:43)
[2019-11-20 07:12] VITALS: BP 96/51
[2019-11-20] MEDS: LISINOPRIL 20 MG TABLET PO SCH (08:44)
[2019-11-20] MEDS: CARVEDILOL 12.5 MG TABLET PO SCH (08:44)
[2019-11-20] MEDS: HYDROCORTISONE 25 MG SUPPOSITORY PR SCH ×2 (08:47→20:34)
[2019-11-20] MEDS: MESALAMINE 1000 MG SUPP PR SCH ×2 (08:47→20:35)
[2019-11-20] MEDS: CALCIUM ACETATE 667 MG CAPSULE PO SCH ×3 (08:47→16:11)
[2019-11-20] MEDS: ASPIRIN 81 MG EC TAB PO SCH (08:47)
[2019-11-20] MEDS: PANTOPRAZOLE SODIUM 40 MG TABLET.DR PO SCH (08:47)
[2019-11-20] MEDS: BENZONATATE 100 MG CAPSULE PO SCH ×3 (08:47→20:34)
[2019-11-20] MEDS: HYDROCORTISONE 1% 28.35 GM CREAM TP SCH ×2 (08:49→20:44)
[2019-11-20] MEDS: ZINC OXIDE OINT 60GM TUBE TP SCH ×2 (08:49→20:44)
--- NOTE | 2019-11-20 09:55 | NUR ---
ptt for heparin drip 74.8, i have turned down the heparin pump 2 units/kg/hr now at 9 units/kg/hr.
--- NOTE | 2019-11-20 10:09 | NUR ---
i spoke to dr alexandra on the phone and informed of consult; he stated dr francis had talked to him already and that he would see the patient this afternoon and they did not need to be npo today
[2019-11-20 10:47] VITALS: BP_SYST 86; BP_SYST 87; BP_DIAS 48; BP_DIAS 58
--- NOTE | 2019-11-20 11:25 | NUR ---
pt is rating pain as high; he currently is only on tylenol 650mg which i gave him 2 hours ago; i was told he is only on that due to his low blood pressure; his current bp is 87/58; i have paged dr dickson to inform him of this pending call back
--- NOTE | 2019-11-20 11:30 | NUR ---
received call back from dr dickson and order received for tramadol and to d/c blood pressure meds;
[2019-11-20] MEDS ORDERED: TRAMADOL HCL 50 MG TABLET ONE (11:34)
--- NOTE | 2019-11-20 13:16 | NUR ---
pt had a liquid bm; i cleaned him up and applied zinc oxide ointment to rectum and sides of groin except on right side of groin; pt has very raw skin on right groin and bottom of scrotal sack; i gently cleansed area and applied vaseline gauze then non adherant gauze; allevyn dressing cdi i have left it in place. i have made pt comfortable in bed and elevated left leg on a pillow, that dressing i have left in place.
--- NOTE | 2019-11-20 14:10 | NUR ---
dr francis here to see patient; he told me that he is changing cardio consult to dr howell because pt was seeing dr rose in the past; he stated that he already dr howell and informed him of the consult and that he would be seeing him later.
--- NOTE | 2019-11-20 14:42 | NUR ---
D/C PLAN CM spoke to pt regarding d/c planning. Pt is ind. and lives with friend named Elpidio Palmer. States he has a provider about 21 hrs/week. Pt attends HD treatments MWF at [facility]. Pt reports he utilized [employer] transportation services. Pt with increased weakness. CM offered short term snf/rehab as possible d/c option. Pt agreeable to placement if ordered. CM offered choices. States he would like to stay in [facility]. States he would like to go to [facility]. CM obtained verbal consent. CM updated nursing. CM to follow up after possible surgery. Addendum: 11/20/19 at 1446 by CHARI HUMPHREY Amended: Links added.
[2019-11-20 15:45] VITALS: BP 85/52
[2019-11-20] MEDS: WARFARIN SODIUM 5 MG TAB PO SCH (16:13)
[2019-11-20 20:21] VITALS: BP 96/67
[2019-11-20] MEDS: TRAMADOL HCL 50 MG TABLET PO PRN (20:34)
[2019-11-20] MEDS: ATORVASTATIN CALCIUM 40 MG TABLET PO SCH (20:34)
[2019-11-20] MEDS ORDERED: MIDODRINE HCL 5 MG TABLET ONE (23:26)
[2019-11-20] MEDS: MIDODRINE HCL 5 MG TABLET PO SCH (23:30)
--- NOTE | 2019-11-20 23:36 | NUR ---
I CALLED DR. HALL VIA ANSWERING SERVICE TO UPDATE ON POOR PAIN CONTROL. RETURNED CALL, I INFORMED HIM OF POOR PAIN CONTROL AND LOW BP (78/52 WITH RECHECK AT 86/56). MD ORDERED FOR MIDODRINE 10 MG PO TID. FIRST DOSE ADMINISTERED NOW. WILL CONT TO MONITOR PATIENT CLOSELY. Addendum: 11/20/19 at 2340 by ROMMEL MCGREGOR RN RN MAP 66 mm/Hg
[2019-11-20 23:56] VITALS: BP 86/56
[2019-11-21] VITALS (30 sets, daily range): BP systolic 73–142; BP diastolic 35–113
[2019-11-21] MEDS: MESALAMINE 1000 MG SUPP PR SCH ×2 (00:46→09:00)
[2019-11-21] MEDS ORDERED: DEXTROSE 50%-WATER 50 ML DISP.SYRIN IV ONE ×2 (05:26→11:02)
[2019-11-21] MEDS: INSULIN R PO SS1 SQ SCH ×4 (06:03→21:00)
[2019-11-21] MEDS: IPRATROPIUM 0.5 MG/2.5 ML INH IH SCH ×4 (06:23→19:27)
[2019-11-21 07:06] LABS: BASOPHILS % (AUTO) 0.9 % (0.0-5.0); EOSINOPHILS % (AUTO) 0.4 % (0.0-8.0); HEMATOCRIT 35.3 % (42-54); LYMPHOCYTES % (AUTO) 3.4 % (21.0-51.0); MEAN CORPUSCULAR HEMOGLOBIN 29.1 pg (27.0-33.0); MEAN CORPUSCULAR HGB CONC 31.4 g/dL (32.0-36.0); MEAN CORPUSCULAR VOLUME 92.7 fL (79-99); MONOCYTES % (AUTO) 2.2 % (3.0-13.0); NEUTROPHILS % (AUTO) 92.8 % (40.0-77.0); NUCLEATED RED BLOOD CELLS 0.3 % (0.0-0.19); PLATELET COUNT (AUTO) 130 K/uL (130-400); RED BLOOD CELL COUNT(AUTO) 3.81 MIL/uL (4.50-6.20); RED CELL DISTRIBUTION WIDTH 17.2 % (11.0-15.5); WHITE BLOOD COUNT (AUTO) 21.4 K/uL (4.8-10.8)
--- NOTE | 2019-11-21 07:15 | NUR ---
PTT 105.5, PT HEPARIN DRIP; I HAVE STOPPED THE DRIP AND DECREASED BY 2 UNITS/KG/HOUR; WILL RESTART IN 1 HOUR PER PROTOCOL
[2019-11-21 07:22] LABS: POTASSIUM 4.3 mmol/L (3.5-5.1)
[2019-11-21 07:26] LABS: CREATININE 10.6 mg/dL (0.5-1.5)
--- NOTE | 2019-11-21 07:30 | NUR ---
RECEIVED A CALL FROM LAB REPORTING CREATINE OF 10.6; THIS IT PT'S NORM AND HE WILL BE RECEIVING DIALYSIS THIS AM
--- NOTE | 2019-11-21 08:16 | NUR ---
I SPOKE TO DR Ronald MCGREGOR ON THE PHONE IN REGARDS TO CONTINUING HEPARIN DRIP DURING DIALYSIS AND HE STATED TO CONTINUE THE DRIP AND HE WOULD BE AT HOSPITAL SHORTLY TO SEE PATIENT.
[2019-11-21] MEDS: MIDODRINE HCL 5 MG TABLET PO SCH ×4 (08:48→21:00)
--- NOTE | 2019-11-21 08:50 | NUR ---
DR MCGREGOR HERE TO SEE PT HE STATED TO GIVE THE PT MIDIDRONE FOR LOW BP NOW AND ALBUMIN
[2019-11-21 08:53] LABS: PROTHROMBIN TIME > 63.0 SEC (9.6-11.6)
[2019-11-21 08:54] LABS: INR > 7.00 (0.85-1.15)
[2019-11-21] MEDS: CALCIUM ACETATE 667 MG CAPSULE PO SCH ×3 (09:00→21:00)
[2019-11-21] MEDS: ASPIRIN 81 MG EC TAB PO SCH (09:00)
[2019-11-21] MEDS: HYDROCORTISONE 1% 28.35 GM CREAM TP SCH ×2 (09:00→22:08)
[2019-11-21] MEDS: HYDROCORTISONE 25 MG SUPPOSITORY PR SCH ×2 (09:00→22:22)
[2019-11-21] MEDS: ZINC OXIDE OINT 60GM TUBE TP SCH ×2 (09:00→22:08)
[2019-11-21] MEDS: BENZONATATE 100 MG CAPSULE PO SCH ×3 (09:00→21:00)
[2019-11-21] MEDS: PANTOPRAZOLE SODIUM 40 MG TABLET.DR PO SCH (09:00)
[2019-11-21] MEDS ORDERED: MIDODRINE HCL 5 MG TABLET PO SCH (09:00)
[2019-11-21] MEDS ORDERED: PHARMACY COMMUNICATION MISC SCH ×2 (09:30→10:00)
[2019-11-21] MEDS ORDERED: PHYTONADIONE 1MG/ML ORAL SOLN PO SCH ×2 (09:30)
[2019-11-21] MEDS ORDERED: ALBUMIN (HUMAN) 25% 100 ML IV PRN (09:30)
[2019-11-21] MEDS ORDERED: VANCOMYCIN 0.75 GM in SODIUM CHLORIDE 0.9% 250 ML IV SCH (10:00)
[2019-11-21] MEDS ORDERED: COMPOUND IV REFRIGERATED 1 EACH IVSOLN MISC PRN (10:15)
[2019-11-21] MEDS ORDERED: COMPOUND PO MISCELLANEOUS 1 EACH MISC MISC PRN (10:15)
[2019-11-21] MEDS ORDERED: GENTAMICIN SULFATE 60 MG in SODIUM CHLORIDE 0.9% 100 ML IV SCH (10:15)
[2019-11-21] MEDS: TRAMADOL HCL 50 MG TABLET PO PRN (10:25)
--- NOTE | 2019-11-21 10:50 | NUR ---
HOLD EVAL Pt ON DIALYSIS AT THIS TIME. HOLD EVALUATION. PASTRY MIXER WILL CONTINUE TO FOLLOW Pt FOR SKILLED SPEECH THERAPY EVAL TOMORROW. PASTRY MIXER COORDINATED WITH NURSE CHARLES. PER NURSE, Pt IS TOLERATING CURRENT DIET WITH NO S/S OF ASPIRATION. Addendum: 11/21/[address]ANNA MAYFIELD Amended: Links added.
--- NOTE | 2019-11-21 11:00 | NUR ---
BLOOD SUGAR 58 1/2 AMP D50 GIVEN; PT IN PROCESS OF GETTING DIALYSIS AT THIS TIME; ALBUMIN AND MIDIDRONE GIVEN DURING TREATMENT FOR HYPOTENSION; HEPARIN DRIP AND COUMADIN D/C BY DR HALL DUE TO ELEVATED PT/PTT AND ORAL VITAMIN K GIVEN TREATMENT.
[2019-11-21] MEDS ORDERED: GLUCAGON 1MG KIT 1 MG ML IM PRN (11:15)
--- NOTE | 2019-11-21 11:45 | NUR ---
I HAVE CALLED DR HALL, DIALYSIS UNABLE TO TAKE ANY FLUID OFF PT DUE TO LOW BP'S, I HAVE ASKED FOR ORDER TO COLLECT LACTIC ACID LEVEL AND HE AGREED AND GAVE ORDER TO TRANSFER TO THE UNIT. ; UPPER AND BOTTOM LACER HAND CHARITY INFORMED.
--- NOTE | 2019-11-21 12:40 | NUR ---
Gentamycin infusing at present. BP 75/43, HR 111, Resp 24, O2 sat 99% on 2.5 liters. Pt awake, responsive, somewhat garbled speech, which is consistent with recent hx per primary nurse report. Dr. Mae paged to notify of consult. Awaiting call back.
--- NOTE | 2019-11-21 13:25 | NUR ---
Spoke with SEGUNDO Salmon for [employer] to notify of consult, and to report low bp, elevated HR, lactic acid results 6.4. Rec'd instruction not to bolus as he is a dialysis pt. Must transfer to ICU for blood pressure with levophed per protocol. Rec'd phone call from Embedded Software Programmer that ICU bed will be available shortly. BP at present 90/52, HR 111. Gentamycin complete, vancomycin now infusing. Informed pt of transfer. Addendum: 11/21/19 at 1337 by NADIR PARISH RN RN amend above to read: "Must transfer to ICU for blood pressure SUPPORT with levophed per protocol."
[2019-11-21] MEDS ORDERED: NOREPINEPHRINE 4MG/NS 250ML 250 ML IV SCH (13:30)
--- NOTE | 2019-11-21 14:00 | NUR ---
BRIANA RN HERE TO TAKE OVER CARE OF PT AND TRANSFER HIM TO ICU; NADIR ARMAS RN HAS GIVEN HIM REPORT AND I HAVE UPDATED HIM; ORDERS ARE IN PLACE TO CULTURE PT'S WOUND'S I HAVE REMOVED THE DRESSING FROM HIS LEFT TMA STUMP BUT THERE IS NO DRAINAGE TO CULTURE IN THAT AREA; THE STUMP IS COOL TO TOUCH WITH DRY HARD BLACK SKIN, SOME SKIN INTACT BUT MOST OF SKIN IS DRY HARD ESCHAR; THE ESCHAR CONTINUES UP THE PT'S CALF ON POSTERIOR SIDE, NO DRAINAGE IN THIS AREA EITHER SO I WAS NOT ABLE TO COLLECT CULTURES; PT DOES HAVE A FOUL SMELLING WOUND AT RIGHT GROIN; I COLLECTED CULTURES HERE; THE PT HAS THE TOP LAYER OF SKIN NOT INTACT IN GROIN AND SPOTS OF SCROTUM, THE SURROUNDING TISSUE IS RED IN APPEARANCE AND BLISTERS ARE NOTED ON RIGHT INNER THIGH; THE PT IS ALSO HAVING A LIQUID BOWEL MOVEMENT AT THIS TIME; I HAVE CLEANED UP THE BOWEL MOVEMENT AND CHANGE THE DRESSING TO GROIN ; I ALSO CHANGED THE ALLEVYN PAD TO SACRUM; HE HAS A STAGE 2 WOUND THERE WITH REDNESS TO SURROUNDING TISSUE, I HAVE CLEANSED WITH NS AND APPLIED A NEW ALLEVYN PAD; NOW THAT PT IS CLEANED UP WE ARE TRANSFERING HIM TO DAY SURGERY ICU, O2 3L PORTABLE OXYGEN ON. PT IS ORIENTED TO PERSON AT THIS TIME BUT NOT TO PLACE AND TIME; I HAVE HELD HIS ORAL MEDS AND SUPPOSITORIES TODAY BECAUSE HE WAS RECEIVING DIALYSIS THEN HE BECAME UNSTABLE AND NEEDED TO BE TRANSFERED.
[2019-11-21] MEDS ORDERED: PHENYLEPHRINE HCL 100 MG in SODIUM CHLORIDE 0.9% 250 ML IV SCH (15:30)
[2019-11-21 15:36] LABS: ABG BASE EXCESS -1.4 mmol/L (-2.0-3.0); ABG HCO3 22.2 mmol/L (21.0-28.0); ABG OXYGEN SATURATION 97.6 % (95.0-99.0); ABG PCO2 35 mmHg (35-48)
[2019-11-21] MEDS ORDERED: ALBUMIN (HUMAN) 25% 100 ML IV SCH (15:45)
--- NOTE | 2019-11-21 15:50 | NUR ---
[facility] consult Attempted assessment of patient and able to see breakdown to sacrum, right groin, right second digit and left TMA. Patient unable to tolerate turning/positioning long enough to obtain accurate measurements. [facility] recommendations submitted per protocol. Patient's nurse at bedside.
[2019-11-21] MEDS ORDERED: MEROPENEM 500 MG VIAL IVP SCH (16:00)
[2019-11-21] MEDS ORDERED: HYDROMORPHONE HCL 0.5 MG/0.5 ML ML ONE (16:19)
[2019-11-21] MEDS ORDERED: DEXTROSE 50%-WATER 25 GM/50 ML VIAL ONE ×2 (17:23→23:22)
--- NOTE | 2019-11-21 19:45 | NUR ---
STATUS PATIENT LETHARGIC, ORIENTED TO SELF. SPEECH GARBLED. BREATHING LABORED AND TACHYPNEIC. VASOPRESSIN INITIATED. PT HYPOGLYCEMIC. D50 ADMINISTERED. ASSESSMENT COMPLETED.
[2019-11-21] MEDS ORDERED: DEXTROSE 10%-WATER 1,000 ML IV ONE (20:26)
[2019-11-21] MEDS: ATORVASTATIN CALCIUM 40 MG TABLET PO SCH (21:00)
[2019-11-21] MEDS: DEXTROSE 50%-WATER 50 ML DISP.SYRIN IV PRN ×2 (21:37→23:25)
[2019-11-21] MEDS: VASOPRESSIN 20 UNITS in SODIUM CHLORIDE 0.9% 100 ML IV SCH (22:49)
[2019-11-21] MEDS: PHENYLEPHRINE HCL 10 MG in SODIUM CHLORIDE 0.9% 250 ML IV PRN (22:51)
[2019-11-22] VITALS (18 sets, daily range): BP systolic 56–142; BP diastolic 31–96
[2019-11-22] MEDS: DEXTROSE 50%-WATER 50 ML DISP.SYRIN IV PRN (00:47)
[2019-11-22] MEDS: PHENYLEPHRINE HCL 10 MG in SODIUM CHLORIDE 0.9% 250 ML IV PRN (01:32)
--- NOTE | 2019-11-22 01:40 | NUR ---
PERSON TO CONTACT CALLED ROSA SAHA AT [phone]. STRAIGHT TO . LEFT FOR CALL BACK. CALLED DOT RAHMAN AT [phone] LISTED NEXT OF KIN. STATED IS PATIENT FRIEND AND NEIGHBOR. STATED THAT PATIENT IS NOT , NO CHILDREN, NO LIVING PARENTS. ONLY KNOWS OF A SISTER BUT CANNOT RECALL NAME. UPDATED ON PATENT DETERIORATING CONDITION. ASKED IF PATIENT HAD ADVANCED DIRECTIVES OR OOH DNR. STATED DOES NOT KNOW BUT RECALLS PATIENT STATING THAT HE DID NOT WANT TO BE ON LIFE SUPPORT. INFORMED THAT WOULD KEEP UPDATED ON PATIENT CONDITION. PROVIDED WITH DP PHONE NUMBER OF [phone].
[2019-11-22 01:51] LABS: ABG BASE EXCESS -18.2 mmol/L (-2.0-3.0); ABG OXYGEN SATURATION 97.9 % (95.0-99.0); ABG PCO2 32 mmHg (35-48)
--- NOTE | 2019-11-22 02:05 | NUR ---
STATUS PHONE NUMBER [facility]. CALLED PHONE NUMBER SPOKE IS [facility]. STATED IS PATIENTS LIVE IN PROVIDER. ALSO STATES THAT PATIENT DOES HAVE A LIVING SISTER BUT DOES NOT KNOW NAME OR HOW TO GET A HOLD OF RELATIVE. STATES DOES KNOW BROTHER IN LAW OF ANOTHER SISTER BUT DOES NOT KNOW HOW TO CONTACT AT THE MOMENT AND WOULD ATTEMPT IN THE AM. WOULD NOT PROVIDE BROTHER IN LAW NAME. INFORMED THAT PATIENT IS IN CRITICAL CONDITION AND IF CAN ATTEMPT TO GET A HOLD OF ANY FAMILY AND CALL BACK WITH INFORMATION
--- NOTE | 2019-11-22 02:21 | NUR ---
STATUS ABGS COMPLETED DUE TO PATIENTS WORSENING RESPIRATORY STATUS. CC CERTIFICATION AND SELECTION SPECIALIST FOR [employer] PAGED. CALLBACK FROM ALO DUNLAP NP. UPDATED ON PATIENT DECLINING CONDITION, VS, VASOPRESSOR USE, ABG RESULTS AND FREQUENT NEED FOR D50 FOR HYPOGLYCEMIA.. ORDERS RECEIVED FOR 2 AMPS BICARB, BICARB DRIP ORDERED AND ANOTHER 2 AMPS OF BICARB AFTER THE FIRST 2 AND REPEAT ABG AT 0600. ORDERS ENTERED INTO SYSTEM
[2019-11-22] MEDS ORDERED: SODIUM BICARB 50MEQ 50ML VIAL ONE ×3 (02:28→04:37)
[2019-11-22] MEDS ORDERED: DEXTROSE 5%-WATER 1,000 ML IV ONE (02:29)
[2019-11-22] MEDS ORDERED: PHENYLEPHRINE HCL 10 MG/ML 1ML VIAL IV ONE ×2 (02:46→02:48)
[2019-11-22] MEDS ORDERED: SODIUM BICARB 8.4% 50ML SYRINGE IVP ONE ×2 (03:00→05:00)
[2019-11-22] MEDS ORDERED: SODIUM BICARB 8.4% 50ML SYRING 150 MEQ in DEXTROSE 5%-WATER 1,000 ML IV SCH (03:00)
[2019-11-22] MEDS: VASOPRESSIN 20 UNITS in SODIUM CHLORIDE 0.9% 100 ML IV SCH (03:04)
--- NOTE | 2019-11-22 03:40 | NUR ---
PROVIDER SPOKE TO PROVIDER JAMAL AGAIN. PROBED FOR ADDITIONAL INFORMATION THAT MAY LEAD TO PATIENT FAMILY. STRESSED THAT PATIENT IS CRITICALLY ILL. NO NEW INFORMATION
[2019-11-22 04:12] LABS: BASOPHILS % (AUTO) 0.1 % (0.0-5.0); EOSINOPHILS % (AUTO) 0.3 % (0.0-8.0); HEMATOCRIT 45.7 % (42-54); LYMPHOCYTES % (AUTO) 4.7 % (21.0-51.0); MEAN CORPUSCULAR HEMOGLOBIN 29.6 pg (27.0-33.0); MEAN CORPUSCULAR HGB CONC 29.1 g/dL (32.0-36.0); MEAN CORPUSCULAR VOLUME 101.6 fL (79-99); MONOCYTES % (AUTO) 2.6 % (3.0-13.0); NEUTROPHILS % (AUTO) 89.1 % (40.0-77.0); NUCLEATED RED BLOOD CELLS 0.9 % (0.0-0.19); PLATELET COUNT (AUTO) 63 K/uL (130-400); RED CELL DISTRIBUTION WIDTH 17.5 % (11.0-15.5)
[2019-11-22 04:23] LABS: WHITE BLOOD COUNT (AUTO) 39.7 K/uL (4.8-10.8)
[2019-11-22 04:37] LABS: ALBUMIN 1.5 g/dL (3.5-5.0); BILIRUBIN,TOTAL 2.2 mg/dL (0.2-1.0); CREATININE 6.3 mg/dL (0.5-1.5); MAGNESIUM 2.4 mg/dL (1.80-2.40); PHOSPHORUS 7.7 mg/dL (2.5-4.9); POTASSIUM 5.7 mmol/L (3.5-5.1); TOTAL PROTEIN, SERUM 5.1 g/dL (6.0-8.3)
[2019-11-22 04:49] LABS: BAND NEUTROPHILS % (MANUAL) 29 % (0-2); LYMPHOCYTES % (MANUAL) 15 % (22-44); MAN.DIFF COMMENT-IMPRESSION MANUAL DIFFERENTIAL; MONOCYTES % (MANUAL) 5 % (2-9); PLATELET MORPHOLOGY COMMENT DECREASED; SEGMENTED NEUTROPHILS % 51 % (40-70)
[2019-11-22 04:57] LABS: INR > 7.00 (0.85-1.15); PARTIAL THROMBOPLASTIN TIME > 120.0 SEC (26.3-35.5); PROTHROMBIN TIME > 63.0 SEC (9.6-11.6)
[2019-11-22] MEDS: INSULIN R PO SS1 SQ SCH (05:52)
[2019-11-22] MEDS: IPRATROPIUM 0.5 MG/2.5 ML INH IH SCH (06:36)
--- NOTE | 2019-11-22 06:45 | NUR ---
STATUS SPOKE TO ROSA SAHA AND DOT RAHMAN. UPDATED ON PATIENT DETERIORATING CONDITION. INFORMED THAT MAY COME TO SEE PATIENT PER [employer] PROGRAMMER ANALYST AND MAY USE EMERGENCY ENTRANCE FOR SCREENING PRIOR TO ENTRY. ROSA SAHA STATED THAT WOULD NOT BE ABLE TO COME DUE TO WORK AND LACK OF TRANSPORTATION. DOT RHAMAN STATED WOULD ATTEMPT TO COME IN BUT ALSO HAS A LACK OF TRANSPORTATION.
--- NOTE | 2019-11-22 06:47 | NUR ---
ABG 0647 ABG DRAWN AFTER MUCH DIFFICULTY. CC CAN LABELER FOR [employer] PAGED TO NOTIFY OF RESULTS, DECLINING CONDITION AND CRITICAL LABS. AWAITING RETURN CALL.
--- NOTE | 2019-11-22 06:53 | NUR ---
SECURITY SECURITY PAGED TO TUBE SIZER OPERATOR PATIENT BELONGINGS.
--- NOTE | 2019-11-22 07:00 | NUR ---
REPORT REPORT GIVEN TO ANGELICA CHIN UPDATED ON PATIENT CONDITION AT BEDSIDE.
--- NOTE | 2019-11-22 07:30 | NUR ---
PT APPEARS IN DISTRESS, SHORT SHALLOW BREATHS ON BIPAP 30/MIN. O2 SAT95%. PATIENT IS UNRESPONSIVE. NOW ON MAX VASOPRESSIN 0.04 MCG/KG/MIN AND MAX NEOSYNEPHRINE 3 MCG/KG/MIN.
--- NOTE | 2019-11-22 07:36 | NUR ---
PRIMARY DR Ronald MCGREGOR PAGED. RETURNED CALL AND UPDATED ON PATIENT CONDITION. STATED THAT IS REGULARLY A PATIENT OF DR MARQUEZ BUT IS COVERING FOR [facility] ADMISSION. DR MCGREGOR ADVISED TO CALL DIALYSIS CENTER IN [facility] TO SEE IF CAN OBTAIN ANY ADDITIONAL PATIENT INFORMATION OR CONTACT INFORMATION. [address] [facility] CALL[facility]. CENTER ALSO HAS ROSA SAHA PERSON TO CONTACT.
--- NOTE | 2019-11-22 07:40 | NUR ---
PATIENT NOT BREATHING. CODE BLUE. PLEASE REFER TO CODE BLUE DOCUMENTATION
--- NOTE | 2019-11-22 07:46 | NUR ---
CODE BLUE PATIENT NO LONGER BREATHING. PATIENT PEA. CODE BLUE CALLED CPR INITIATED. PLEASE REFER TO CODE SHEET.
[2019-11-22 07:53] LABS: ABG BASE EXCESS -14.2 mmol/L (-2.0-3.0); ABG HCO3 16.2 mmol/L (21.0-28.0); ABG OXYGEN SATURATION 97.4 % (95.0-99.0); ABG PCO2 58 mmHg (35-48)
--- NOTE | 2019-11-22 08:27 | NUR ---
CARDIAC TIME OF , PRONOUNCED BY DR ASHER, REFER TO DOCUMENTATION OF
--- NOTE | 2019-11-22 08:27 | NUR ---
CODE BLUE, REFER TO CODE BLUE CHARTING
--- NOTE | 2019-11-22 08:30 | NUR ---
DNR [address]IENT MADE DNR BY DR ASHER DUE TO MEDICAL FUTILITY. NO STAFF PRESENT IN DISAGREEMENT. DNR SIGNED BY ER PHYSICIAN DR ASHER, QUARRY MANAGER JAIMIE HERNANDEZ, RN, AND PATIENT SAFETY ATTENDANT JAIMIE SIMMONS. CC CULVERT INSTALLER NOTIFIED. PATIENT PRONOUNCED AT [address] ASHER.
== END 2019-11-22 08:27 | disposition expired | DRG 871 ==
LOC: EDH 22:01 → EDHIP 11-18 01:35 → 3CH 11-18 16:33 → DAHIP 11-21 15:25
PROVIDERS: ADMIT Internal Medicine Nephrology; ATTEND Internal Medicine Nephrology
PROC: 5A1D70Z Performance of Urinary Filtration, Intermittent, Less than 6 Hours Per Day (ICD-10-PCS; principal; 2019-11-18)
PROC: 5A1D70Z Performance of Urinary Filtration, Intermittent, Less than 6 Hours Per Day (ICD-10-PCS; 2019-11-21)
PROC: 5A12012 Performance of Cardiac Output, Single, Manual (ICD-10-PCS; 2019-11-21)
PROC: 0BH17EZ Insertion of Endotracheal Airway into Trachea, Via Natural or Artificial Opening (ICD-10-PCS; 2019-11-22)
PROC: 5A1935Z Respiratory Ventilation, Less than 24 Consecutive Hours (ICD-10-PCS; 2019-11-22)
PROC: 5A09357 Assistance with Respiratory Ventilation, Less than 24 Consecutive Hours, Continuous Positive Airway Pressure (ICD-10-PCS; 2019-11-22)
DX: A41.9 Sepsis, unspecified organism (principal); N18.6 End stage renal disease; R65.21 Severe sepsis with septic shock; I82.401 Acute embolism and thrombosis of unspecified deep veins of right lower extremity; D68.9 Coagulation defect, unspecified; E11.52 Type 2 diabetes mellitus with diabetic peripheral angiopathy with gangrene; G93.40 Encephalopathy, unspecified; I12.0 Hypertensive chronic kidney disease with stage 5 chronic kidney disease or end stage renal disease; I96 Gangrene, not elsewhere classified; D64.9 Anemia, unspecified; E11.22 Type 2 diabetes mellitus with diabetic chronic kidney disease; I46.9 Cardiac arrest, cause unspecified; Z66 Do not resuscitate; E11.40 Type 2 diabetes mellitus with diabetic neuropathy, unspecified; E11.621 Type 2 diabetes mellitus with foot ulcer; E78.00 Pure hypercholesterolemia, unspecified; E78.5 Hyperlipidemia, unspecified; I25.10 Atherosclerotic heart disease of native coronary artery without angina pectoris; I25.5 Ischemic cardiomyopathy; L97.529 Non-pressure chronic ulcer of other part of left foot with unspecified severity; Z99.2 Dependence on renal dialysis; Z89.511 Acquired absence of right leg below knee; Z89.512 Acquired absence of left leg below knee; Z89.612 Acquired absence of left leg above knee; Z89.432 Acquired absence of left foot; Z95.1 Presence of aortocoronary bypass graft
CPT/HCPCS: 31500; 36415; 36600; 70450; 71045; 73552; 80048; 80053; 80202; 82140; 82435; 82550; 82803; 82947; 82948; 83605; 83735; 84100; 84132; 84145; 84295; 85018; 85025; 85610; 85730; 87040; 87070; 87076; 87077; 87186; 87520; 90935; 92950; 93005; 93926; 93971; 94002; 94640; 94660; 94664; G0378; J0171; J1170; J1580; J1644; J2185; J2270; J2370; J2405; J3370; J3430; J3490; J7050; J7070